=== PATIENT | male | born 1940 | race Hispanic/Latino ===

== ENCOUNTER → 2019-06-07 | Outpatient (CLI) | payer MEDICARE ==
--- NOTE | 2019-06-07 11:55 | Diagnostic Imaging Report ---
MRI of the right hand without contrast. History: Hand pain and swelling most pronounced at the third digit Technique: Multiplanar multisequence MRI of the right hand without contrast Findings: No acute fracture, dislocation or evidence of avascular necrosis. 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 Similar findings are seen at the second metacarpophalangeal joint. There is what appears to be a degenerative cyst in the distal second metacarpal. No ligamentous or tendon tear. The visualized muscles are normal in size, signal intensity and morphology. The visualized neurovascular bundles are intact. 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 Similar findings are seen at the second metacarpophalangeal joint. There is what appears to be a degenerative cyst in the distal second metacarpal. Signed by: Dr. García Edwards M.D. on 06/07/2019 11:52 AM
== END ==
LOC: MRI 09:28
PROVIDERS: ATTEND Plastic Surgery
DX: M25.541 Pain in joints of right hand (principal); M25.441 Effusion, right hand

== ENCOUNTER → 2020-12-10 | Day surgery (SDC) | payer MEDICARE ==
[2020-12-09 10:59] LABS: BASOPHILS % 0.6 % (0.0-1.0); EOSINOPHILS # (AUTO) 0.1 (0.0-0.4); EOSINOPHILS % 1.2 % (0.0-6.0); HEMATOCRIT 43.6 % (38.2-49.6); HEMOGLOBIN 14.1 g/dL (14.0-18.0); LYMPHOCYTES # (AUTO) 1.8 (1.0-3.2); LYMPHOCYTES % 27.5 % (18.0-39.1); MEAN CORPUSCULAR HGB CONC 32.3 g/dL (31-35); MEAN CORPUSCULAR VOLUME 89.7 fL (81-99); MONOCYTES # (AUTO) 0.6 (0.2-0.8); MONOCYTES % 8.5 % (4.4-11.3); NEUTROPHILS # (AUTO) 4.2 (2.1-6.9); NEUTROPHILS % 61.9 % (38.7-80.0); PLATELET COUNT 282 x10e3/uL (140-360); RED BLOOD COUNT 4.86 x10e6/uL (4.3-5.7); RED CELL DISTRIBUTION WIDTH 12.5 % (11.7-14.4)
[~2020-12-10] MED LIST: ACETAMINOPHEN-1 EAC3 PO; AMLODIPINE BESYL5 MG PO; BUPIVACAINE 0.25% 30ML SDV ONE; FENTANYL CITRATE/PF 100MCG/2 ML INJ ONE; LISINOPRIL10 MG PO; MEPERIDINE HCL INJ 25 MG/ML VIAL ONE; MUPIROCIN 2% OINT 22 GM TUBE ONE; SODIUM CHLORIDE 0.9% 50ML 50 ML ONE
[2020-12-10 09:00] VITALS: BP 147/72
== END ==
LOC: OR 07:00
PROVIDERS: ATTEND Plastic Surgery
DX: S63.262A Dislocation of metacarpophalangeal joint of right middle finger, initial encounter (principal); Z20.822 Contact with and (suspected) exposure to COVID-19; Z53.39 Other specified procedure converted to open procedure; I10 Essential (primary) hypertension; Z01.818 Encounter for other preprocedural examination
CPT/HCPCS: 26715; 36415; 71046; 85025; 93005; C1713; J0690; J2175; J3010; U0002

== ENCOUNTER 2021-02-05 09:44 | Outpatient (RCR) | payer MEDICARE ==
[~2021-02-05 09:44] MED LIST changes: -BUPIVACAINE 0.25% 30ML SDV ONE; -FENTANYL CITRATE/PF 100MCG/2 ML INJ ONE; -MEPERIDINE HCL INJ 25 MG/ML VIAL ONE; -MUPIROCIN 2% OINT 22 GM TUBE ONE; -SODIUM CHLORIDE 0.9% 50ML 50 ML ONE
== END 2021-02-09 ==
LOC: OT 09:44
PROVIDERS: ATTEND Plastic Surgery
DX: M25.641 Stiffness of right hand, not elsewhere classified (principal); M25.631 Stiffness of right wrist, not elsewhere classified; M25.541 Pain in joints of right hand; M79.641 Pain in right hand; R20.9 Unspecified disturbances of skin sensation; R53.1 Weakness

== ENCOUNTER 2021-03-03 09:50 | Outpatient (RCR) | payer MEDICARE | END 2021-03-11 | LOC: OT 09:50 | PROVIDERS: ATTEND Plastic Surgery | DX: M79.641 Pain in right hand (principal); M25.641 Stiffness of right hand, not elsewhere classified; M25.631 Stiffness of right wrist, not elsewhere classified; M25.541 Pain in joints of right hand; R20.9 Unspecified disturbances of skin sensation; R53.1 Weakness ==